=== PATIENT | female | born 1965 | race Caucasian/White ===

== ENCOUNTER 2019-10-08 05:56 | Emergency (ER) | payer OTHER, SELFPAY ==
--- NOTE | ~2019-10-08 | XR_ITS ---
EXAMINATION: XR ribs RT 2V w CXR 2V DATE: 10/08/2019 06:35 INDICATION: Lateral right rib pain post coughing TECHNIQUE: PA and lateral views of the chest and 3 views of the right ribs were obtained. COMPARISON: Chest radiograph dated 10/14/2013 FINDINGS: No rib fractures identified. Chronic mild pleural parenchymal scarring at the bilateral apices and at the apex of the right hemidiaphragm. No other airspace opacities, pulmonary edema, pleural effusion or pneumothorax. Cardiomediastinal silhouette is normal. Mild thoracic spondylosis. IMPRESSION: 1. No rib fracture or acute cardiopulmonary disease. Reviewed, dictated and finalized at location A.
[2019-10-08 06:05] VITALS: BP 129/92; PULSE 65; RESP 20; TEMP 37; O2SAT 98
--- NOTE | 2019-10-08 06:19 | ED.BACK ---
HPI - Back Pain/Injury General Chief Complaint: Back Pain/Injury Stated Complaint: RIB/BACK PAIN S/P CHEST COLD Time Seen by Provider: 10/08/19 06:00 History of Present Illness HPI Narrative: Patient is a 54-year-old female who presents with right-sided back pain. Patient reports she has had a cough that is improving. She has been having some backaches related to the coughing. Today she rolled over in bed and felt a sudden onset pulling pain on the right side. It is now worse with any type of movement or taking deep breath. She has no dyspnea. No fevers or chills or sweats. Has not tried any pain medication. Related Data Allergies Allergy/AdvReac Type Severity Reaction Status Date / Time No Known Allergies Allergy Verified 02/23/15 10:26 Review of Systems Review of Systems: All systems reviewed & are unremarkable except as noted in HPI and below Constitutional: Constitutional: Denies chills, Denies fever(s) and Denies weakness ENT: Denies nasal congestion and Denies sore throat Cardiovascular: Cardiovascular: Denies chest pain and Denies radiating jaw, neck or arm pain Respiratory: Respiratory: Reports cough, Denies dyspnea and Denies wheezing Musculoskeletal: Musculoskeletal: Reports back pain, Denies arthralgias, Denies joint swelling and Reports muscle cramps PMFSH Social History Social History Gender identity (if verbalized by the patient): Female Exam Narrative: Exam Narrative: GENERAL: Well-appearing, well-nourished, and in no acute distress. HEAD: Normocephalic, atraumatic. ENT: Mucous membranes moist. CHEST: Clear to auscultation. No respiratory distress. Tender palpation over the chest wall posterior to the mid axillary line on the right. HEART: Regular rate and rhythm. Normal peripheral pulses. SKIN: Warm, dry, no rash. NEURO: Alert and oriented x3. Course Course Emergency Course: No rib fractures. Discharge home with pain medication. Vital Signs Vital signs: Vital Signs Temperature 98.6 F 10/08/19 06:05 Pulse Rate 65 10/08/19 06:05 Respiratory Rate 20 10/08/19 06:05 Blood Pressure 129/92 H 10/08/19 06:05 Pulse Oximetry 98 10/08/19 06:05 Temperature 98.6 F 10/08/19 06:05 Pulse Rate 58 L 10/08/19 06:56 Respiratory Rate 19 10/08/19 06:56 Blood Pressure 99/65 L 10/08/19 06:56 Pulse Oximetry 98 10/08/19 06:56 MDM - Back Pain/Injury Imaging Data Radiologist's impression: ITS Impressions Ribs w/Chest X-Ray 10/08/19 07:09 IMPRESSION: 1. No rib fracture or acute cardiopulmonary disease. Discharge Plan Discharge Clinical Impression: Chest wall pain Patient Disposition: Home, Self-Care Condition: Stable Instructions: Chest Wall Pain (ED) Prescriptions: New hydrocodone-acetaminophen 5-325 mg tablet 1 tablet PO Q6H PRN (Reason: pain) Qty: 12 RF: 0 Follow-up/Referrals: PHYSICIAN NOT ON STAFF,NONSTAFF [Primary Care Provider] - 1 Week Stand Alone Forms: Work/School Release IP
[2019-10-08 06:56] VITALS: BP 99/65; PULSE 58; RESP 19; O2SAT 98
[2019-10-08 07:31] VITALS: BP 103/67; PULSE 63; RESP 14; O2SAT 97
== END 2019-10-08 07:33 | disposition home or self-care (01) ==
PROVIDERS: Emergency Provider Emergency Medicine
DX: R07.89 Other chest pain (principal)
CPT/HCPCS: 71046; 71100; 99283

== ENCOUNTER → 2022-11-18 15:10 | Outpatient (CLI) | payer BC, SELFPAY ==
--- NOTE | ~2022-11-18 | MM_ITS ---
EXAMINATION: MM screening jessica BI w nae HISTORY: Screening TECHNIQUE: Craniocaudal and mediolateral oblique 3-D tomosynthesis images were obtained and synthetic 2-D images were generated. CAD analysis was submitted and interpreted. COMPARISON: No prior mammogram is available for comparison at this institution. BREAST PARENCHYMAL COMPOSITION: There are scattered areas of fibroglandular density. FINDINGS: There are nodular asymmetries in the central aspect of the right breast obscured by fibrogl andular tissue. No evidence for malignancy in the left breast. IMPRESSION: 1. Nodular asymmetries of the right breast. 2. Additional mammographic views and possible breast ultrasound are recommended. BI-RADS Category 0: Incomplete: Needs additional imaging evaluation. Reviewed, dictated and finalized at location A. IMPRESSION: 1. Nodular asymmetries of the right breast. 2. Additional mammographic views and possible breast ultrasound are recommended . BI-RADS Category 0: Incomplete: Needs additional imaging evaluation.
== END ==
PROVIDERS: PCP Registered Nurse; Visit Provider Registered Nurse
DX: Z12.31 Encounter for screening mammogram for malignant neoplasm of breast (principal); R92.8 Other abnormal and inconclusive findings on diagnostic imaging of breast
CPT/HCPCS: 77063; 77067

== ENCOUNTER → 2023-02-14 08:23 | Outpatient (CLI) | payer OTHER, SELFPAY ==
--- NOTE | ~2023-02-14 | MMUS_ITS ---
EXAMINATION: MM diagnostic jessica RT w nae, US breast RT complete HISTORY: Follow-up right breast asymmetries TECHNIQUE: Additional 3-D tomosynthesis images of the right breast were performed and synthetic 2-D i mages were generated. CAD analysis was submitted and interpreted. High resolution complete right angella st ultrasound was performed. COMPARISON: 11/18/2022 BREAST PARENCHYMAL COMPOSITION: BREAST PARENCHYMAL COMPOSITION: There are scattered areas of fibroglandular density. FINDINGS: MAMMOGRAPHIC FINDINGS: Nodular area of asymmetries in the central aspect of the right breast are less apparent with spot com pression views. No discrete mass or architectural distortion. No suspicious cluster of calcifications . ULTRASOUND: Complete US of all 4 quadrants of the right breast and retroareolar region was reviewed. The Mello there is a 6 mm cyst. No suspicious masses to suggest malignancy. IMPRESSION: 1. No evidence for malignancy in the right breast. 2. Routine yearly screening mammogram and regular clinical breast examination are recommended. BI-RADS Category 2: Benign finding(s). Reviewed, dictated and finalized at location A. IMPRESSION: 1. No evidence for malignancy in the right breast. 2. Routine yearly screening mammogram and regular clinical breast examination a re recommended. BI-RADS Category 2: Benign finding(s).
== END ==
PROVIDERS: PCP Registered Nurse; Visit Provider Registered Nurse
DX: R92.8 Other abnormal and inconclusive findings on diagnostic imaging of breast (principal)
CPT/HCPCS: 76641; 77061; 77065; G0279